=== PATIENT | female | born 1975 | race Caucasian/White ===

== ENCOUNTER 2016-06-12 18:00 | Emergency (ER) | payer BC ==
[2016-06-12 18:17] VITALS: BP 129/80
--- NOTE | 2016-06-12 18:29 | UC ---
Back Pain HPI - HPI Summary HPI Summary: WOKE UP YESTERDAY MORNING WITH SHARP LEFT SIDED MID BACK PAIN AND SPASM. GETTING WORSE. IBUPROFEN NOT HELPFUL. HAS HAD SEVERAL EPISODES OF SIMILAR PAIN BUT IN LOW BACK OVER THE PAST YEAR AND A HALF. USUALLY GETS BETTER WITH OTC MEDS AND REST. THIS FEELS WORSE. NO INJURY OR TRAUMA SHE CAN RECALL. 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 NO NUMBNESS, TINGLING OR SADDLE ANESTHESIA. - History of Current Complaint Chief Complaint: UCBackPain Stated Complaint: BACK PAIN Time Seen by Provider: 06/12/16 18:07 Hx Obtained From: Patient Hx Last Menstrual Period: 06/12/16 Onset/Duration: Sudden Onset, Lasting Days, Still Present Timing: Constant Severity Initially: Moderate Severity Currently: Moderate Pain Intensity: 6 Pain Scale Used: 0-10 Numeric Back Pain: Is Discrete @ - LEFT MID BACK Character: Sharp, Spasmodic Aggravating: Movement, Bending Alleviating: Nothing Associated Signs And Symptoms: Negative: Swelling, Redness, Bruising, Fever, Weakness, Numbness, Tingling, Abdominal Pain, Flank Pain, Bladder Incontinence, Bowel Incontinence - Allergies/Home Medications Allergies/Adverse Reactions: Allergies Allergy/AdvReac Type Severity Reaction Status Date / Time Sulfa Drugs Allergy Intermediate Rash Verified 06/12/16 18:08 PMH/Surg Hx/FS Hx/Imm Hx Previously Healthy: Yes Endocrine History Of: Denies: Diabetes, Thyroid Disease Cardiovascular History Of: Denies: Cardiac Disorders, Hypertension Respiratory History Of: Denies: COPD, Asthma GI/ History Of: Denies: Ulcer - Surgical History Surgical History: None - Family History Known Family History: Positive: Cardiac Disease - Social History Alcohol Use: Weekly Substance Use Type: None Smoking Status (MU): Never Smoked Tobacco Have You Smoked in the Last Year: No - Immunization History Most Recent Influenza Vaccination: 2016 Most Recent Tetanus Shot: 09/04/12 Vaccination Up to Date: Yes Review of Systems Constitutional: Negative Skin: Negative Respiratory: Negative Cardiovascular: Negative Gastrointestinal: Negative Musculoskeletal: Decreased ROM, Myalgia All Other Systems Reviewed And Are Negative: Yes Physical Exam Triage Information Reviewed: Yes Appearance: Well-Appearing, Well-Nourished, Pain Distress - MODERATE Vital Signs: Initial Vital Signs Temp 99 F 06/12/16 18:09 Pulse 71 06/12/16 18:09 Resp 18 06/12/16 18:09 BP 129/80 06/12/16 18:09 Pulse Ox 99 06/12/16 18:09 Vital Signs Reviewed: Yes Eyes: Positive: Conjunctiva Clear ENT: Positive: Hearing grossly normal Neck: Positive: Supple Respiratory: Positive: No respiratory distress, No accessory muscle use Cardiovascular: Positive: Pulses Normal Abdomen Description: Positive: Soft Musculoskeletal: Positive: No Edema, ROM Limited @ - BACK. PT VISIBLY UNCOMFORTABLE, Other: - NOT TTP OVER PARASPINOUS MUSCLES OR BONY PROMINENCES Neurological: Positive: Alert Psychological: Positive: Age Appropriate Behavior Skin: Negative: rashes Diagnostics - Radiology THORACOLUMBAR XRAYS Xray Interpretation: No Acute Changes Radiology Interpretation Completed By: Radiologist Back Pain Course/Dx - Differential Dx/Diagnosis Provider Diagnoses: ACUTE THORACIC BACK STRAIN Discharge - Discharge Plan Condition: Stable Disposition: HOME Prescriptions: Cyclobenzaprine TAB* [Flexeril TAB*] 10 mg PO BID PRN #30 tab PRN Reason: Pain Naproxen [Naproxen EC] 500 mg PO BID PRN #30 tab PRN Reason: Pain predniSONE TAB* [Deltasone TAB*] 40 mg PO DAILY #10 tab Patient Education Materials: Thoracic Back Strain (ED) Forms: *Work Release Referrals: Luis Maers MD [Primary Care Provider] - If Needed Additional Instructions: XRAYS TODAY UNREMARKABLE. BE SURE TO GO THROUGH SLOW RANGE OF MOTION AND STRETCHING EXERCISES DAILY YOU ARE ABLE TO PREVENT STIFFENING UP AND MAKING THE DISCOMFORT WORSE. FOLLOW-UP WITH YOUR PCP. IF YOUR SYMPTOMS DO NOT RESOLVE OR ARE RECURRENT YOU MAY BENEFIT FROM ADDITIONAL IMAGING. PHYSICAL THERAPY REFERRAL PROVIDED.
[2016-06-12] MEDS ORDERED: Naproxen TAB* 250 MG PO ONE ×2 (18:36→18:54)
[2016-06-12] MEDS ORDERED: Cyclobenzaprine TAB* 10 MG PO ONE (18:37)
[2016-06-12] MEDS ORDERED: predniSONE TAB* 20 MG PO ONE (18:56)
--- NOTE | 2016-06-12 18:58 | RAD ---
INDICATION: Neck pain. COMPARISON: Comparison is made with a prior chest x-ray study from April 05, 2003. TECHNIQUE: AP and lateral films of the spine were obtained centered at the dorsal lumbar junction. FINDINGS: The vertebra are in normal alignment. No fracture is seen. Disc spaces appear maintained. IMPRESSION: NEGATIVE EXAM.
== END 2016-06-12 19:14 | disposition home or self-care (01) ==
LOC: UCEAST 18:00
DX: S29.012A Strain of muscle and tendon of back wall of thorax, initial encounter (principal); X58.XXXA Exposure to other specified factors, initial encounter; Y93.9 Activity, unspecified; Y92.9 Unspecified place or not applicable; Z88.2 Allergy status to sulfonamides
CPT/HCPCS: 72080; 99213; A9270-GY; G0463; J7512

== ENCOUNTER 2016-06-22 00:59 | Emergency (ER) | payer BC ==
[2016-06-22] MEDS ORDERED: Ketorolac INJ* 15 MG/ML 1 ML VIAL IV PUSH ONE (01:40)
--- NOTE | 2016-06-22 01:49 | ED ---
Back Pain - HPI Summary HPI Summary: The patient is a 40 year old female presenting for evaluation of left mid back pain which began 1 week ago. Denies trauma or heavy lifting. Describes a constant pain progressively worse unrelieved with ibuprofen 800 mg last taken at 4 pm tonight. Increased pain with positional changes, lying supine or left lateral recumbent, and deep breaths. Admits to radiation to LUQ. Denies fever, chills diaphoresis, chest pain, cough, shortness of breath, hemoptysis, nausea, vomiting, dysuria, change in voiding, hematuria, numbness, unilateral weakness. Denies significant past medical or surgical history. FH CAD. SH: Occasional alcohol. No smoking or drug use. - History of Current Complaint Chief Complaint: EDFlankPain Stated Complaint: BACK PAIN Time Seen by Provider: 06/22/16 01:24 Hx Last Menstrual Period: 06/12/16 Pain Intensity: 5 - Allergies/Home Medications Allergies/Adverse Reactions: Allergies Allergy/AdvReac Type Severity Reaction Status Date / Time Sulfa Drugs Allergy Intermediate Rash Verified 06/21/16 09:15 PMH/Surg Hx/FS Hx/Imm Hx Endocrine/Hematology History: Denies: Hx Diabetes, Hx Thyroid Disease Cardiovascular History: Denies: Hx Hypertension, Hx Pacemaker/ICD Respiratory History: Denies: Hx Asthma, Hx Chronic Obstructive Pulmonary Disease (COPD) GI History: Denies: Hx Ulcer History: Denies: Hx Renal Disease Musculoskeletal History: Denies: Hx Scoliosis Sensory History: Denies: Hx Hearing Aid Neurological History: Denies: Hx Headaches Psychiatric History: Denies: Hx Panic Disorder Infectious Disease History: No Infectious Disease History: Denies: Hx Hepatitis, Hx Human Immunodeficiency Virus (HIV), Traveled Outside the [place] in Last 30 Days - Family History Known Family History: Positive: Cardiac Disease - Social History Alcohol Use: Weekly Substance Use Type: Reports: None Smoking Status (MU): Never Smoked Tobacco Have You Smoked in the Last Year: No Review of Systems Constitutional: Negative Cardiovascular: Negative Negative: Palpitations, Chest Pain Respiratory: Negative Negative: Shortness Of Breath, Cough Positive: Abdominal Pain. Negative: Vomiting, Diarrhea, Nausea Positive: Arthralgia, Myalgia. Negative: Decreased ROM Skin: Negative Negative: Rash, Bruising Neurological: Negative Negative: Weakness, Paresthesia, Numbness All Other Systems Reviewed And Are Negative: Yes Physical Exam Triage Information Reviewed: Yes Vital Signs On Initial Exam: Initial Vitals Temp Pulse Resp BP Pulse Ox 97.4 F 99 18 124/80 100 06/22/16 01:05 06/22/16 01:05 06/22/16 01:05 06/22/16 01:05 06/22/16 01:05 Vital Signs Reviewed: Yes Appearance: Positive: Well-Appearing, Well-Nourished, Pain Distress - grimacing with guarded positional changes; moderate pain Skin: Positive: Warm, Skin Color Reflects Adequate Perfusion, Dry Head/Face: Positive: Normal Head/Face Inspection Eyes: Positive: Normal - Anicteric ENT: Positive: Hearing grossly normal Neck: Positive: Supple, Nontender Respiratory/Lung Sounds: Positive: Clear to Auscultation, Breath Sounds Present. Negative: Decreased Breath Sounds, Rales, Rhonchi, Wheezes, Unable to speak in full sentences Cardiovascular: Positive: Normal, RRR, S1, S2. Negative: Murmur, Rub, Tachycardia, Leg Edema Left, Leg Edema Right, S3 Abdomen Description: Positive: No Organomegaly, Soft, Other: - mild tenderness LLQ. Negative: CVA Tenderness (R), CVA Tenderness (L), Distended, Guarding, Hepatomegaly, Peritoneal Signs, Splenomegaly Bowel Sounds: Positive: Present Musculoskeletal: Positive: Pain @ - no midline thoracic or lumbar tenderness; reproducible left mid thoracic paraspinous tenderness, Other - 5/5 muscle strength UE/LE bilaterally. Negative: Itzel Sign Left, Itzel Sign Right, Edema Left, Edema Right Neurological: Positive: Normal, Sensory/Motor Intact, Reflexes Intact, Facial Symmetry, Speech Normal Psychiatric: Positive: Normal AVPU Assessment: Alert Diagnostics - Vital Signs Vital Signs Temp Pulse Resp BP Pulse Ox 06/22/16 01:05 97.4 F 99 18 124/80 100 - Laboratory Result Diagrams: 06/22/16 01:50 06/22/16 01:50 Lab Statement: Any lab studies that have been ordered have been reviewed, and results considered in the medical decision making process. Back Pain Course/Dx - Course Assessment/Plan: Patient presents for mid thoracic pain pleuritic and positional. EKG NSR without acute ischemia. Low suspicion of ACS. CXR reviewed by myself without acute cardiopulmonary disease. Labs significant for WBC 12.9, Cr 1.42, with negative D-dimer. UA 2+ blood, and epithelial cell. CT Abd/Pelv renal protocol ordered. - Diagnoses Provider Diagnoses: Back pain, Hematuria - Provider Notifications Discussed Care of Patient With: signed out to Dr. Hawley [id number] Discharge - Discharge Plan Condition: Stable Disposition: OTHER Discharge Disposition Comment: signed out to Dr. Hawley [id number]
[2016-06-22 02:07] LABS: Hematocrit 43 % (35-47); Mean Corpuscular HGB Conc 33 g/dl (31-36); Mean Corpuscular Hemoglobin 28 pg (27-31); Mean Corpuscular Volume 85 fL (80-97); Mean Platelet Volume 9 um3 (7.4-10.4); Red Blood Count 5.08 10^6/ul (4.0-5.4); Red Cell Distribution Width 15 % (10.5-15); White Blood Count 12.9 10^3/ul (3.5-10.8)
[2016-06-22 02:10] LABS: Comments Flag Yes
[2016-06-22 02:11] LABS: Add Diff/Slide Review? Slide Review Added; Urine Bacteria Absent (Absent); Urine Bilirubin Negative (Negative); Urine Glucose Negative (Negative); Urine Nitrite Negative (Negative)
[2016-06-22 02:17] LABS: BUN/Creatinine Ratio 16.2 (8-20); Calcium 10.1 mg/dL (8.6-10.3); EGFR African American 53.2 (>60); EGFR Non-African American 41.4 (>60); Potassium 3.6 mmol/L (3.5-5.0)
[2016-06-22] MEDS ORDERED: NS 0.9% 1000 ML* 1,000 ML IV ONE ×2 (02:25→06:27)
--- NOTE | 2016-06-22 07:54 | RAD ---
Indication: Left posterior back pain. Comparison is made with previous exam dated January 09, 2010. 2 views of the chest including dual energy PA views demonstrate no mediastinal shift. Heart is of normal size and configuration. Lung eason are clear. IMPRESSION: No active cardiopulmonary disease is noted.
--- NOTE | 2016-06-22 08:00 | RAD ---
CLINICAL HISTORY: Left flank pain, hematuria COMPARISON: None TECHNIQUE: Multiple contiguous axial CT scans were obtained of the abdomen and pelvis, without intravenous contrast enhancement. Coronal and sagittal multiplanar reformations are submitted for review. Oral contrast was not administered. FINDINGS: The study is limited by the lack of intravenous contrast. This limits evaluation of the solid organs and vasculature. LUNG BASES: The lung bases are clear. LIVER: The liver is normal in shape, size, contour, and attenuation. BILE DUCTS: There is no intrahepatic or extrahepatic biliary dilatation. GALLBLADDER: The gallbladder is collapsed and is not well evaluated PANCREAS: The pancreas is normal, without mass or ductal dilatation. SPLEEN: Normal in size and appearance. UPPER GI TRACT: Evaluation of the gastrointestinal tract is limited by incomplete gastric distention. The upper GI tract is unremarkable. SMALL BOWEL AND MESENTERY: The small bowel is normal in contour, course, and caliber. There is no obstruction or dilatation. COLON: The colon is normal in contour, course, caliber. There is no pericolonic inflammatory change. There is a tubular, vermiform, hollow viscus that is blind ending, and originates from the cecum, consistent with a normal appendix. There is no periappendiceal inflammatory change. This is best seen on images 87 through 107 ADRENALS: Normal bilaterally. KIDNEYS: The kidneys are normal in shape, size, contour, and axis. There is no hydronephrosis or nephrolithiasis. BLADDER: The bladder is smooth in contour. PELVIC ORGANS: The uterus and adnexa are grossly normal for technique. There is a trace of free fluid within the cul-de-sac. This may be physiologic within a reproductive age female AORTA: The aorta is normal. IVC: Unremarkable LYMPH NODES: There is no lymphadenopathy by size criteria. ABDOMINAL WALL: There is no evidence for abdominal wall hernia. BONES AND SOFT TISSUES: Unremarkable OTHER: None IMPRESSION: NO HYDRONEPHROSIS OR NEPHROLITHIASIS
--- NOTE | 2016-06-22 08:38 | RAD ---
HISTORY: Renal insufficiency, flank pain COMPARISONS: CT dated June 22, 2016 TECHNIQUE: Multiple transverse and longitudinal ultrasound images were obtained of the kidneys and bladder using grayscale and color Doppler imaging. FINDINGS: RIGHT KIDNEY: The right kidney is normal in shape, size, contour, and echogenicity. There is no hydronephrosis or nephrolithiasis. The right kidney measures 10.8 x 5.7 x 5.4 cm. LEFT KIDNEY: The left kidney is normal in shape, size, contour, and echogenicity. There is no hydronephrosis or nephrolithiasis. The left kidney measures 10.5 x 4.2 x 4.6 cm. BLADDER: The bladder is smooth in contour. Bilateral ureteral jets are identified. The prevoid bladder volume is 143 milliliters.. The postvoid bladder volume is 7 milliliters. AORTA AND IVC: No images are submitted of the vasculature. RETROPERITONEUM: Unremarkable. OTHER: There are multiple hypoechoic lesions with internal vascularity throughout the spleen measuring up to 1.8 cm. IMPRESSION: 1. NO HYDRONEPHROSIS OR NEPHROLITHIASIS. 2. POST VOID RESIDUAL OF 7 ML. 3. HYPOECHOIC VASCULARIZED SPLENIC LESIONS. THE ABSENCE OF A HISTORY OF MALIGNANCY, THESE LIKELY REPRESENT SPLENIC HEMANGIOMAS, THOUGH THE IMAGING APPEARANCE IS INDETERMINATE. RECOMMEND CONSIDERATION OF CONTRAST-ENHANCED CT OR CONTRAST-ENHANCED MRI OF THE ABDOMEN.
--- NOTE | 2016-06-22 08:55 | ED ---
Maximo Ortiz Anna, scribed for Jill Peña MD on 06/22/16 at 0759 . Progress - Progress Note Progress Note: Pt signed out from Dr. Hawley at shift change, pending US. Patient is a 40 y/o female coming to [facility] presenting with left-sided flank pain. Pt with spasming laterally Course/Dx - Diagnoses Provider Diagnoses: Hematuria, Musculoskeletal pain Diagnostics - Vital Signs Vital Signs Temp Pulse Resp BP Pulse Ox 06/22/16 07:40 123/73 06/22/16 07:39 73 98 06/22/16 06:07 97.6 F 70 18 110/60 98 06/22/16 01:05 97.4 F 99 18 124/80 100 - Laboratory Lab Results: Lab Results 06/22/16 06/22/16 06/22/16 Range/Units 01:50 01:50 01:50 WBC 12.9 H (3.5-10.8) 10^3/ul RBC 5.08 (4.0-5.4) 10^6/ul Hgb 14.0 (12.0-16.0) g/dl Hct 43 (35-47) % MCV 85 (80-97) fL MCH 28 (27-31) pg MCHC 33 (31-36) g/dl RDW 15 (10.5-15) % Plt Count 285 (150-450) 10^3/ul MPV 9 (7.4-10.4) um3 Neut % (Auto) 76.5 (38-83) % Lymph % (Auto) 13.1 L (25-47) % Patrick % (Auto) 5.9 (1-9) % Eos % (Auto) 1.6 (0-6) % Baso % (Auto) 2.9 H (0-2) % Absolute Neuts (auto) 9.9 H (1.5-7.7) 10^3/ul Absolute Lymphs (auto) 1.7 (1.0-4.8) 10^3/ul Absolute Monos (auto) 0.8 (0-0.8) 10^3/ul Absolute Eos (auto) 0.2 (0-0.6) 10^3/ul Absolute Basos (auto) 0.4 H (0-0.2) 10^3/ul Absolute Nucleated RBC 0.01 10^3/ul Nucleated RBC % 0.1 D-Dimer, Quantitative < 200 (Less Than 230) ng/mL Sodium (133-145) mmol/L Potassium (3.5-5.0) mmol/L Chloride (101-111) mmol/L Carbon Dioxide (22-32) mmol/L Anion Gap (2-11) mmol/L BUN (6-24) mg/dL Creatinine (0.51-0.95) mg/dL Est GFR ( Amer) (>60) Est GFR (Non-Af Amer) (>60) BUN/Creatinine Ratio (8-20) Glucose (70-100) mg/dL Lactic Acid (0.5-2.0) mmol/L Calcium (8.6-10.3) mg/dL Urine Color Yellow Urine Appearance Clear Urine pH 6.0 (5-9) Ur Specific Mcintire 1.017 (1.010-1.030) Urine Protein Negative (Negative) Urine Ketones Negative (Negative) Urine Blood 1+ H (Negative) Urine Nitrate Negative (Negative) Urine Bilirubin Negative (Negative) Urine Urobilinogen Negative (Negative) Ur Leukocyte Esterase Negative (Negative) Urine WBC (Auto) Trace(0-5/hpf) (Absent) Urine RBC (Auto) 2+(6-10/hpf) H (Absent) Ur Squamous Epith Cells Present H (Absent) Urine Bacteria Absent (Absent) Urine Glucose Negative (Negative) 06/22/16 06/22/16 06/22/16 Range/Units 01:50 06:10 07:23 WBC (3.5-10.8) 10^3/ul RBC (4.0-5.4) 10^6/ul Hgb (12.0-16.0) g/dl Hct (35-47) % MCV (80-97) fL MCH (27-31) pg MCHC (31-36) g/dl RDW (10.5-15) % Plt Count (150-450) 10^3/ul MPV (7.4-10.4) um3 Neut % (Auto) (38-83) % Lymph % (Auto) (25-47) % Patrick % (Auto) (1-9) % Eos % (Auto) (0-6) % Baso % (Auto) (0-2) % Absolute Neuts (auto) (1.5-7.7) 10^3/ul Absolute Lymphs (auto) (1.0-4.8) 10^3/ul Absolute Monos (auto) (0-0.8) 10^3/ul Absolute Eos (auto) (0-0.6) 10^3/ul Absolute Basos (auto) (0-0.2) 10^3/ul Absolute Nucleated RBC 10^3/ul Nucleated RBC % D-Dimer, Quantitative (Less Than 230) ng/mL Sodium 137 (133-145) mmol/L Potassium 3.6 (3.5-5.0) mmol/L Chloride 104 (101-111) mmol/L Carbon Dioxide 27 (22-32) mmol/L Anion Gap 6 (2-11) mmol/L BUN 23 (6-24) mg/dL Creatinine 1.42 H (0.51-0.95) mg/dL Est GFR ( Amer) 53.2 (>60) Est GFR (Non-Af Amer) 41.4 (>60) BUN/Creatinine Ratio 16.2 (8-20) Glucose 95 (70-100) mg/dL Lactic Acid 0.5 0.5 (0.5-2.0) mmol/L Calcium 10.1 (8.6-10.3) mg/dL Urine Color Urine Appearance Urine pH (5-9) Ur Specific Mcintire (1.010-1.030) Urine Protein (Negative) Urine Ketones (Negative) Urine Blood (Negative) Urine Nitrate (Negative) Urine Bilirubin (Negative) Urine Urobilinogen (Negative) Ur Leukocyte Esterase (Negative) Urine WBC (Auto) (Absent) Urine RBC (Auto) (Absent) Ur Squamous Epith Cells (Absent) Urine Bacteria (Absent) Urine Glucose (Negative) Result Diagrams: 06/22/16 01:50 06/22/16 01:50 Lab Statement: Any lab studies that have been ordered have been reviewed, and results considered in the medical decision making process. - Ultrasound No standard instances Ultrasound Interpretation: Positive (See Comments) Ultrasound Interpretation Completed By: Radiologist - RENAL AND BLADDER US IMPRESSION: 1. NO HYDRONEPHROSIS OR NEPHROLITHIASIS. 2. POST VOID RESIDUAL OF 7 ML. 3. HYPOECHOIC VASCULARIZED SPLENIC LESIONS. THE ABSENCE OF A HISTORY OF MALIGNANCY, THESE LIKELY REPRESENT SPLENIC HEMANGIOMAS, THOUGH THE IMAGING APPEARANCE IS INDETERMINATE. RECOMMEND CONSIDERATION OF CONTRAST-ENHANCED CT OR CONTRAST-ENHANCED MRI OF THE ABDOMEN. The documentation as recorded by the Maximo collins Anna accurately reflects the service I personally performed and the decisions made by me, Jill Peña MD.
[2016-06-22 09:15] VITALS: BP 117/72
== END 2016-06-22 09:13 | disposition home or self-care (01) ==
LOC: ED 00:59
DX: R31.9 Hematuria, unspecified (principal); M79.1 Myalgia
CPT/HCPCS: 36415; 71020; 74176; 76770; 80048; 81003; 81015; 83605; 85025; 85379; 93005; 96374; 99282; J1885

== ENCOUNTER 2016-07-29 10:29 | Emergency (ER) | payer BC ==
[2016-07-29 11:41] VITALS: BP 127/70
[2016-07-29] MEDS ORDERED: DOXYcycline CAP(*) 100 MG PO ONE (12:24)
--- NOTE | 2016-07-29 12:31 | UC ---
Skin Complaint HPI - HPI Summary HPI Summary: Suddenly "felt tick burrowing in" on upper back this morning, picked at the area with a knife but still concerned about tick parts remaining. - History of Current Complaint Chief Complaint: UCSkin Time Seen by Provider: 07/29/16 12:14 Stated Complaint: TICK BITE Hx Obtained From: Patient Hx Last Menstrual Period: 2 WEEKS ?: No Onset/Duration: Sudden Onset Skin Exposure Onset/Duration: Hours Ago Timing: Constant Onset Severity: Mild Current Severity: Mild Character: Pain Aggravating: Nothing Alleviating: Nothing Associated Signs & Symptoms: Positive: Negative Related History: Insect Bite/Sting - Allergy/Home Medications Allergies/Adverse Reactions: Allergies Allergy/AdvReac Type Severity Reaction Status Date / Time Sulfa Drugs Allergy Intermediate Rash Verified 07/29/16 11:36 Home Medications: Home Medications NK [No Home Medications Reported] 07/29/16 [History Confirmed 07/29/16] Review of Systems Constitutional: Negative Skin: Other - tick bite, possible tick parts Eyes: Negative ENT: Negative Respiratory: Negative Cardiovascular: Negative Gastrointestinal: Negative Genitourinary: Negative Motor: Negative Neurovascular: Negative Musculoskeletal: Negative Neurological: Negative Psychological: Negative All Other Systems Reviewed And Are Negative: Yes PMH/Surg Hx/FS Hx/Imm Hx Endocrine History Of: Denies: Diabetes, Thyroid Disease Cardiovascular History Of: Denies: Cardiac Disorders, Hypertension, Pacemaker/ICD Respiratory History Of: Denies: COPD, Asthma GI/ History Of: Denies: Ulcer, Renal Disease - Surgical History Surgical History: None - Family History Known Family History: Positive: Cardiac Disease - Social History Lives: With Family Alcohol Use: Weekly Substance Use Type: None Smoking Status (MU): Never Smoked Tobacco Have You Smoked in the Last Year: No - Immunization History Most Recent Influenza Vaccination: 2015 Most Recent Tetanus Shot: 09/04/12 Vaccination Up to Date: Yes Physical Exam Triage Information Reviewed: Yes Appearance: Well-Appearing, No Pain Distress, Well-Nourished Vital Signs: Initial Vital Signs Temp 98.6 F 07/29/16 11:37 Pulse 66 07/29/16 11:37 Resp 16 07/29/16 11:37 BP 127/70 07/29/16 11:37 Pulse Ox 100 07/29/16 11:37 Vital Signs Reviewed: Yes Eye Exam: Normal Eyes: Positive: Conjunctiva Clear ENT Exam: Normal ENT: Positive: Normal ENT inspection, Hearing grossly normal, Pharynx normal, TMs normal Dental Exam: Normal Neck exam: Normal Neck: Positive: Supple, Nontender, No Lymphadenopathy Respiratory Exam: Normal Respiratory: Positive: Chest non-tender, Lungs clear, Normal breath sounds, No respiratory distress, No accessory muscle use Cardiovascular Exam: Normal Cardiovascular: Positive: RRR, No Murmur Musculoskeletal Exam: Normal Musculoskeletal: Positive: ROM Intact Neurological Exam: Normal Neurological: Positive: Alert Psychological Exam: Normal Skin Exam: Other - tick bite site completely abraded of skin approx 1cm diameter. Possible tiny punctate dark spot in center, no tick parts above the wound to remove. Course/Dx - Course Course Of Treatment: Provided education that possible mouth parts remaining in the bite wound do not increase chances of tick borne infection. - Diagnoses Provider Diagnoses: tick bite Discharge - Discharge Plan Condition: Stable Disposition: HOME Patient Education Materials: Tick Bite (ED) Referrals: Alethea Cheng MD [Primary Care Provider] - Additional Instructions: If you develop any of the following, please see your physician promptly: (1) Fever, chills, or generalized malaise associated with a headache. (2) A red round area at the site of the bite (or elsewhere) (3) Joint pain, joint swelling or generalized weakness. (4) Redness, swelling, or drainage at the site of the bite. Check yourself, your children and your pets for ticks whenever you've been in an area where ticks live. To remove a tick, grasp it firmly with some tweezers or a string in a slipknot as close to its head as possible and pull it steadily. Ticks do not have a typical "head" attached to their body. There are mouth parts sticking out which they use to feed. If there are mouth parts left behind in the wound there is NO increased risk of Lyme infection; however, the chances of a bacterial skin infection (cellulitis) are higher. If mouth parts remain after tick removal, the best thing to do is apply warm soaks to the area 3-4 times per day to encourage the skin to expel the foreign material. DOXYCYCLINE: Doxycycline (Vibramycin, Doryx) is an antibiotic of the tetracycline family. This type of drug is useful for infections of the respiratory tract and genital tract, and is sometimes used for intestinal infections. Unlike most tetracyclines, doxycycline can be taken with food. It is longer acting, and (usually) less prone to side effects than regular tetracycline. Tetracycline antibiotics can stain immature teeth and SHOULD NOT BE TAKEN BY CHILDREN, NURSING MOTHERS, OR WOMEN. Tetracyclines can make you more prone to sunburn. Abdominal cramping, nausea, and diarrhea are occasional side effects. Women may experience vaginal yeast infections. Call the doctor at once if you develop hives, itching, shortness of breath , or lightheadedness. WHEN A TICK IS NOT ENGORGED AND HAS BEEN ON LESS THAN 24 HOURS - THE RISK FOR LYME IS NEGLIGIBLE. YOU CAN REMOVE THE TICK AND OBSERVE THE AREA ON YOUR OWN. FOLLOW-UP CARE: You should contact your private physician for follow-up care if you develop spreading redness near the site of the bite or on any other areas of the body. If you are unable to get a timely appointment, or if you are worsening, call us or return for re-evaluation.
== END 2016-07-29 12:35 | disposition home or self-care (01) ==
LOC: UCEAST 10:29
DX: S20.469A Insect bite (nonvenomous) of unspecified back wall of thorax, initial encounter (principal); W57.XXXA Bitten or stung by nonvenomous insect and other nonvenomous arthropods, initial encounter; Y93.9 Activity, unspecified; Y92.9 Unspecified place or not applicable; Z88.2 Allergy status to sulfonamides
CPT/HCPCS: 99212; A9270-GY; G0463

== ENCOUNTER 2017-01-20 17:12 | Emergency (ER) | payer BC ==
[2017-01-20 17:40] VITALS: BP 115/73
[2017-01-20] MEDS ORDERED: predniSONE TAB* 20 MG PO ONE (18:22)
--- NOTE | 2017-01-20 18:29 | UC ---
Lyle Ortiz Nikita, scribed for Leonor Layne MD on 01/20/17 at 1818 . Respiratory Complaint HPI - HPI Summary HPI Summary: This patient is a 41 year old F presenting to [facility] with a chief complaint of a cough since 1 week ago. The CC is described as a dry cough at onset then a productive cough with green sputum since yesterday. The patient rates the pain 4 /10 in severity. Symptoms aggravated by nothing. Symptoms alleviated by nothing. Patient reports fatigue after coughing fits (sporadic), the coughing disrupts her sleep, burning/stinging in the throat, muscle aches, CP (secondary to coughing fits), and a loss of appetite. Patient denies ear pain and sinus congestion. Pt has only been taking cough drops. - History of Current Complaint Chief Complaint: UCRespiratory Stated Complaint: COUGH Time Seen by Provider: 01/20/17 18:07 Hx Obtained From: Patient Hx Last Menstrual Period: 01/07/17 Onset/Duration: Sudden Onset, Lasting Weeks, Still Present Severity Initially: Moderate Severity Currently: Moderate Pain Intensity: 4 Pain Scale Used: 0-10 Numeric Character: Cough: Nonproductive - at onset, Cough: Productive - green sputum started yesterday Aggravating Factors: Nothing Alleviating Factors: Nothing Associated Signs And Symptoms: Negative: Negative - Patient reports fatigue after coughing fits (sporadic), the coughing disrupts her sleep, burning/ stinging in the throat, muscle aches, CP (secondary to coughing fits), and a loss of appetite. Patient denies ear pain and sinus congestion. - Allergies/Home Medications Allergies/Adverse Reactions: Allergies Allergy/AdvReac Type Severity Reaction Status Date / Time Sulfa Drugs Allergy Intermediate Rash Verified 07/29/16 11:36 PMH/Surg Hx/FS Hx/Imm Hx Previously Healthy: Yes Endocrine History: Other Other Endocrine History: No DM Cardiovascular History: Other Other Cardiovascular History: No CAD, HTN Respiratory History: Other Other Respiratory History: No asthma, COPD - Surgical History Surgical History: None - Family History Known Family History: Positive: Cardiac Disease, Other Family History: asthma, stents - Social History Alcohol Use: Weekly Substance Use Type: None Smoking Status (MU): Former Smoker Have You Smoked in the Last Year: No - Immunization History Most Recent Influenza Vaccination: 2015 Most Recent Tetanus Shot: 09/04/12 Vaccination Up to Date: Yes Review of Systems Constitutional: Fatigue - after sporadic coughing fits Skin: Negative Eyes: Negative ENT: Other - burning/stinging in the throat; denies sinus congestion and ear pain Respiratory: Cough - non-productive at onset, productive with green sputum since yesterday Cardiovascular: Chest Pain - secondary to coughing fits Gastrointestinal: Other - loss of appetite Genitourinary: Negative Motor: Negative Neurovascular: Negative Musculoskeletal: Other: - muscle aches Neurological: Other - disruption of sleep due to coughing Psychological: Negative All Other Systems Reviewed And Are Negative: Yes Physical Exam Triage Information Reviewed: Yes Appearance: Well-Appearing, No Pain Distress Vital Signs: Initial Vital Signs Temp 98.1 F 01/20/17 17:33 Pulse 72 01/20/17 17:33 Resp 18 01/20/17 17:33 BP 115/73 01/20/17 17:33 Pulse Ox 100 01/20/17 17:33 Eyes: Positive: Conjunctiva Clear ENT: Positive: Pharynx normal, TMs normal Neck: Positive: Supple, Nontender, No Lymphadenopathy Respiratory: Positive: Lungs clear, Normal breath sounds Cardiovascular: Positive: RRR, No Murmur Musculoskeletal Exam: Normal Neurological Exam: Normal Psychological Exam: Normal Skin Exam: Normal UC Diagnostic Evaluation - Laboratory O2 Sat by Pulse Oximetry: 100 Respiratory Course/Dx - Course Course Of Treatment: can use prednisone for cough/secretions. back pain secondary to coughing. - Differential Dx/Diagnosis Differential Diagnosis/HQI/PQRI: Bronchitis, Laryngitis, Sinusitis Provider Diagnoses: viral respiratory illness with cough Discharge - Discharge Plan Condition: Stable Disposition: HOME Prescriptions: predniSONE TAB* [Deltasone TAB*] 20 mg PO BID #10 tab Patient Education Materials: Upper Respiratory Infection (ED) Referrals: Alethea Cheng MD [Primary Care Provider] - Additional Instructions: Begin use of prednisone to decrease secretions and help to suppress the cough. Use a long acting suppressant such as Delsym during the day. As discussed, there is no clinical evidence of a bacterial infection. You can use ibuprofen 600mg for relief of the back and chest wall pain caused by the coughing. The documentation as recorded by the Lyle collins Nikita accurately reflects the service I personally performed and the decisions made by me, Leonor Layne MD.
== END 2017-01-20 18:40 | disposition home or self-care (01) ==
LOC: UCEAST 17:12
DX: J06.9 Acute upper respiratory infection, unspecified (principal); Z88.2 Allergy status to sulfonamides
CPT/HCPCS: 99212; G0463; J7512

== ENCOUNTER → 2017-07-15 12:12 | Emergency (ER) | payer SELFPAY ==
[~2017-07-15 12:12] MED LIST: Ibuprofen TAB* 600 MG PO ONE
[2017-07-15 12:45] VITALS: BP 124/78
--- NOTE | 2017-07-15 13:11 | UC ---
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 Using crutches to ambulate, denies severe pain or swelling. Pain with wt-bearing. - History of Current Complaint Stated Complaint: ANKLE INJURY Time Seen by Provider: 07/15/17 12:39 Hx Obtained From: Patient Hx Last Menstrual Period: 07/04/17 Onset/Duration: Sudden Onset Severity Initially: Severe Severity Currently: Moderate Pain Intensity: 0 Aggravating Factor(s): Standing, Ambulation Alleviating Factor(s): Rest Able to Bear Weight: Yes Related History: Occupational Injury - Allergies/Home Medications Allergies/Adverse Reactions: Allergies Allergy/AdvReac Type Severity Reaction Status Date / Time Sulfa (Sulfonamide Allergy Rash Verified 07/15/17 12:39 Antibiotics) PMH/Surg Hx/FS Hx/Imm Hx - Additional Past Medical History Additional PMH: Chronic L hip pain Previously Healthy: Yes - Surgical History Surgical History: None - Family History Known Family History: Positive: Cardiac Disease, Other Family History: asthma, stents - Social History Occupation: Employed Full-time Alcohol Use: Weekly Substance Use Type: None Smoking Status (MU): Former Smoker Have You Smoked in the Last Year: No - Immunization History Most Recent Influenza Vaccination: 2015 Most Recent Tetanus Shot: 09/04/12 Vaccination Up to Date: Yes Review of Systems Constitutional: Negative Skin: Negative Eyes: Negative ENT: Negative Respiratory: Negative Cardiovascular: Negative Gastrointestinal: Negative Genitourinary: Negative Motor: Negative Neurovascular: Negative Musculoskeletal: Arthralgia Neurological: Negative Psychological: Negative Is Patient Immunocompromised?: No All Other Systems Reviewed And Are Negative: Yes Physical Exam Triage Information Reviewed: Yes Appearance: Well-Appearing, No Pain Distress, Well-Nourished Vital Signs: Initial Vital Signs Temp 98.8 F 07/15/17 12:40 Pulse 86 07/15/17 12:40 Resp 20 07/15/17 12:40 BP 124/78 07/15/17 12:40 Pulse Ox 100 07/15/17 12:40 Vital Signs Reviewed: Yes Eye Exam: Normal Eyes: Positive: Conjunctiva Clear ENT Exam: Normal ENT: Positive: Normal ENT inspection, Hearing grossly normal, Pharynx normal, TMs normal Neck exam: Normal Neck: Positive: Supple, Nontender, No Lymphadenopathy Respiratory Exam: Normal Respiratory: Positive: Chest non-tender, Lungs clear, Normal breath sounds, No respiratory distress, No accessory muscle use Cardiovascular Exam: Normal Cardiovascular: Positive: RRR, No Murmur Musculoskeletal Exam: Other - pain along L lateral ankle ligaments, no bony tenderness Musculoskeletal: Positive: ROM Intact Neurological Exam: Normal Neurological: Positive: Alert Psychological Exam: Normal Skin Exam: Normal Diagnostics - Radiology No standard instances Xray Interpretation: No Acute Changes Radiology Interpretation Completed By: Radiologist Lower Extremity Course/Dx - Differential Dx/Diagnosis Provider Diagnoses: L ankle sprain Discharge - Sign-Out/Discharge Documenting (check all that apply): Discharge - Discharge Plan Condition: Stable Disposition: HOME Referrals: Alethea Cheng MD [Primary Care Provider] - - Billing Disposition and Condition Condition: STABLE Disposition: HOME
--- NOTE | 2017-07-15 13:45 | RAD ---
HISTORY: Left ankle pain status post injury COMPARISONS: October 30, 2011 VIEWS: 3, Frontal, lateral, and oblique views of the left ankle FINDINGS: BONE DENSITY: Normal. BONES: There is no displaced fracture. JOINTS: There is no arthropathy. ALIGNMENT: There is no dislocation. SOFT TISSUES: Unremarkable. OTHER FINDINGS: None. IMPRESSION: NO ACUTE OSSEOUS INJURY. IF SYMPTOMS PERSIST, RECOMMEND REPEAT IMAGING.
== END | disposition home or self-care (01) ==
LOC: UCEAST 12:12
DX: S93.402A Sprain of unspecified ligament of left ankle, initial encounter (principal); W18.49XA Other slipping, tripping and stumbling without falling, initial encounter; Y93.G1 Activity, food preparation and clean up; Y92.215 Trade school as the place of occurrence of the external cause; Y99.0 Civilian activity done for income or pay; Z88.2 Allergy status to sulfonamides; Z87.891 Personal history of nicotine dependence
CPT/HCPCS: 99212; A9270-GY; G0463

== ENCOUNTER 2017-11-05 21:45 | Emergency (ER) | payer BC ==
[2017-11-05] MEDS ORDERED: Aspirin 81 mg CHEW TAB* 81 MG TAB.CHEW PO ONE (22:11)
[2017-11-05] MEDS ORDERED: LORazepam INJ* 2 MG/ML 1 ML VIAL IV PUSH ONE (22:11)
[2017-11-05 22:46] LABS: ABS Basophils 0.1 10^3/ul (0-0.2); ABS Eosinophils 0 10^3/ul (0-0.6); ABS Lymphocytes 1.4 10^3/ul (1.0-4.8); ABS Monocytes 0.6 10^3/ul (0-0.8); ABS Neutrophils 8.5 10^3/ul (1.5-7.7); ABS Nucleated RBC 0 10^3/ul; Eosinophil % 0.4 % (0-6); Hematocrit 43 % (35-47); Hemoglobin 14.5 g/dl (12.0-16.0); Lymphocyte % 13.5 % (25-47); Mean Corpuscular HGB Conc 34 g/dl (31-36); Mean Corpuscular Hemoglobin 29 pg (27-31); Mean Corpuscular Volume 84 fL (80-97); Mean Platelet Volume 8.8 um3 (7.4-10.4); Nucleated Red Blood Cells % 0.1; Platelet Count 265 10^3/ul (150-450); Red Blood Count 5.09 10^6/ul (4.00-5.40); Red Cell Distribution Width 15 % (10.5-15); White Blood Count 10.6 10^3/ul (3.5-10.8)
[2017-11-05 22:58] LABS: INR 0.87 (0.77-1.02)
[2017-11-05 23:06] LABS: EGFR Non-African American 60.7 (>60)
[2017-11-05] MEDS ORDERED: Potassium Chlor TAB* 20 MEQ TAB.ER PO ONE (23:16)
--- NOTE | 2017-11-05 23:24 | ED ---
HPI Chest Pain - HPI Summary HPI Summary: This is scribe Layton Villalobos documenting for attending Partha Xiong M.D. Patient is a 42 y/o F w/ c/o left sided constant chest pain which radiates to upper back and SOB onsetting six days ago. She also notes left hand numbness and tingling. She states she also began to experience right hand and facial tingling and numbness as well as dizziness while coming to hospital. On triage, pain is rated 5/10 and nothing is noted to aggravate/alleviate Sx. No Hx of anxiety and panic attack. Home medications and allergies are reviewed. I, Dr. Xiong, personally performed the services described in this documentation as scribed in my presence and it is both accurate and complete. - History of Current Complaint Chief Complaint: EDChestPainROMI Time Seen by Provider: 11/05/17 21:50 Hx Obtained From: Patient Hx Last Menstrual Period: 07/04/17 Onset/Duration: Started Days Ago - 6 days ago Timing: Constant Current Severity: Moderate - 5/10 Pain Intensity: 5 Pain Scale Used: 0-10 Numeric - 5/10 Chest Pain Location: Discrete at: - left side Chest Pain Radiates: Yes Chest Pain Radiates To:: Back - upper back Aggravating Factor(s): Nothing Alleviating Factor(s): Nothing Associated Signs and Symptoms: Positive: Numbness - left hand, right hand, face , Tingling - left hand, right hand, face, Dizziness, Shortness of Breath, Back Pain - Allergy/Home Medications Allergies/Adverse Reactions: Allergies Allergy/AdvReac Type Severity Reaction Status Date / Time Sulfa (Sulfonamide Allergy Rash Verified 07/15/17 12:39 Antibiotics) PMH/Surg Hx/FS Hx/Imm Hx Endocrine/Hematology History: Denies: Hx Diabetes, Hx Thyroid Disease Cardiovascular History: Denies: Hx Hypertension, Hx Pacemaker/ICD Respiratory History: Denies: Hx Asthma, Hx Chronic Obstructive Pulmonary Disease (COPD) GI History: Denies: Hx Ulcer History: Denies: Hx Renal Disease Musculoskeletal History: Denies: Hx Scoliosis Sensory History: Denies: Hx Hearing Aid Neurological History: Denies: Hx Headaches Psychiatric History: Denies: Hx Panic Disorder Infectious Disease History: No Infectious Disease History: Denies: Hx Clostridium Difficile, Hx Hepatitis, Hx Human Immunodeficiency Virus (HIV), Hx of Known/Suspected MRSA, Hx Shingles, Hx Tuberculosis, Hx Known/ Suspected VRE, Hx Known/Suspected VRSA, History Other Infectious Disease, Traveled Outside the [place] in Last 30 Days - Family History Known Family History: Positive: Cardiac Disease, Other - asthma, stents - Social History Alcohol Use: Daily Substance Use Type: Reports: None Hx Tobacco Use: No Smoking Status (MU): Former Smoker Have You Smoked in the Last Year: No Review of Systems Positive: Chest Pain - left side Positive: Shortness Of Breath Musculoskeletal: Other - back pain Neurological: Other - tingling in right hand, left hand, face; dizziness Positive: Numbness - right hand, left hand, face All Other Systems Reviewed And Are Negative: Yes Physical Exam - Summary Physical Exam Summary: VITAL SIGNS: Reviewed. GENERAL: Patient is a well-developed and nourished female who is lying comfortable in the stretcher. Patient is not in any acute respiratory distress. HEAD AND FACE: No signs of trauma. No ecchymosis, hematomas or skull depressions. No sinus tenderness. EYES: PERRLA, EOMI x 2, No injected conjunctiva, no nystagmus. EARS: Hearing grossly intact. Ear canals and tympanic membranes are within normal limits. MOUTH: Oropharynx within normal limits. NECK: Supple, trachea is midline, no adenopathy, no JVD, no carotid bruit, no c- spine tenderness, neck with full ROM. CHEST: Symmetric, no tenderness at palpation LUNGS: Clear to auscultation bilaterally. No wheezing or crackles. CVS: Regular rate and rhythm, S1 and S2 present, no murmurs or gallops appreciated. ABDOMEN: Soft, non-tender. No signs of distention. No rebound no guarding, and no masses palpated. Bowel sounds are normal. EXTREMITIES: FROM in all major joints, no edema, no cyanosis or clubbing. NEURO: Alert and oriented x 3. No acute neurological deficits. Speech is normal and follows commands. SKIN: Dry and warm Triage Information Reviewed: Yes Vital Signs On Initial Exam: Initial Vitals Temp Pulse Resp BP Pulse Ox 98.5 F 83 12 139/82 100 11/05/17 21:48 11/05/17 21:48 11/05/17 21:48 11/05/17 21:48 11/05/17 21:48 Vital Signs Reviewed: Yes Diagnostics - Vital Signs Vital Signs Temp Pulse Resp BP Pulse Ox 11/05/17 22:42 20 11/05/17 22:22 17 131/86 11/05/17 22:00 87 18 97 11/05/17 21:52 79 22 139/82 100 11/05/17 21:51 84 100 11/05/17 21:48 98.5 F 83 12 139/82 100 - Laboratory Lab Results: Lab Results 11/05/17 11/05/17 11/05/17 Range/Units 22:37 22:38 22:38 WBC 10.6 (3.5-10.8) 10^3/ul RBC 5.09 (4.00-5.40) 10^6/ul Hgb 14.5 (12.0-16.0) g/dl Hct 43 (35-47) % MCV 84 (80-97) fL MCH 29 (27-31) pg MCHC 34 (31-36) g/dl RDW 15 (10.5-15) % Plt Count 265 (150-450) 10^3/ul MPV 8.8 (7.4-10.4) um3 Neut % (Auto) 80.0 (38-83) % Lymph % (Auto) 13.5 L (25-47) % [place] % (Auto) 5.4 (0-7) % Eos % (Auto) 0.4 (0-6) % Baso % (Auto) 0.7 (0-2) % Absolute Neuts (auto) 8.5 H (1.5-7.7) 10^3/ul Absolute Lymphs (auto) 1.4 (1.0-4.8) 10^3/ul Absolute Monos (auto) 0.6 (0-0.8) 10^3/ul Absolute Eos (auto) 0 (0-0.6) 10^3/ul Absolute Basos (auto) 0.1 (0-0.2) 10^3/ul Absolute Nucleated RBC 0 10^3/ul Nucleated RBC % 0.1 INR (Anticoag Therapy) 0.87 (0.77-1.02) APTT 31.8 (26.0-36.3) seconds Sodium 139 (135-145) mmol/L Potassium 3.3 L (3.5-5.0) mmol/L Chloride 109 (101-111) mmol/L Carbon Dioxide 18 L (22-32) mmol/L Anion Gap 12 H (2-11) mmol/L BUN 13 (6-24) mg/dL Creatinine 1.01 H (0.51-0.95) mg/dL Est GFR ( Amer) 73.5 (>60) Est GFR (Non-Af Amer) 60.7 (>60) BUN/Creatinine Ratio 12.9 (8-20) Glucose 130 H (70-100) mg/dL Lactic Acid (0.5-2.0) mmol/L Calcium 10.1 (8.6-10.3) mg/dL Magnesium 1.8 L (1.9-2.7) mg/dL Total Bilirubin 0.60 (0.2-1.0) mg/dL AST 14 (13-39) U/L ALT 11 (7-52) U/L Alkaline Phosphatase 50 (34-104) U/L Troponin I 0.00 (<0.04) ng/mL Total Protein 7.4 (6.4-8.9) g/dL Albumin 4.9 (3.2-5.2) g/dL Globulin 2.5 (2-4) g/dL Albumin/Globulin Ratio 2.0 (1-3) Beta HCG, Quant < 0.60 mIU/mL 11/05/17 Range/Units 22:38 WBC (3.5-10.8) 10^3/ul RBC (4.00-5.40) 10^6/ul Hgb (12.0-16.0) g/dl Hct (35-47) % MCV (80-97) fL MCH (27-31) pg MCHC (31-36) g/dl RDW (10.5-15) % Plt Count (150-450) 10^3/ul MPV (7.4-10.4) um3 Neut % (Auto) (38-83) % Lymph % (Auto) (25-47) % [place] % (Auto) (0-7) % Eos % (Auto) (0-6) % Baso % (Auto) (0-2) % Absolute Neuts (auto) (1.5-7.7) 10^3/ul Absolute Lymphs (auto) (1.0-4.8) 10^3/ul Absolute Monos (auto) (0-0.8) 10^3/ul Absolute Eos (auto) (0-0.6) 10^3/ul Absolute Basos (auto) (0-0.2) 10^3/ul Absolute Nucleated RBC 10^3/ul Nucleated RBC % INR (Anticoag Therapy) (0.77-1.02) APTT (26.0-36.3) seconds Sodium (135-145) mmol/L Potassium (3.5-5.0) mmol/L Chloride (101-111) mmol/L Carbon Dioxide (22-32) mmol/L Anion Gap (2-11) mmol/L BUN (6-24) mg/dL Creatinine (0.51-0.95) mg/dL Est GFR ( Amer) (>60) Est GFR (Non-Af Amer) (>60) BUN/Creatinine Ratio (8-20) Glucose (70-100) mg/dL Lactic Acid 1.6 (0.5-2.0) mmol/L Calcium (8.6-10.3) mg/dL Magnesium (1.9-2.7) mg/dL Total Bilirubin (0.2-1.0) mg/dL AST (13-39) U/L ALT (7-52) U/L Alkaline Phosphatase (34-104) U/L Troponin I (<0.04) ng/mL Total Protein (6.4-8.9) g/dL Albumin (3.2-5.2) g/dL Globulin (2-4) g/dL Albumin/Globulin Ratio (1-3) Beta HCG, Quant mIU/mL Result Diagrams: 11/05/17 22:38 11/05/17 22:38 Lab Statement: Any lab studies that have been ordered have been reviewed, and results considered in the medical decision making process. - Radiology CXR Xray Interpretation: No Acute Changes Radiology Interpretation Completed By: ED Physician - No acute processes, pending official report. - EKG 2152 Cardiac Rate: NL - rate of 77 BPM EKG Rhythm: Sinus Rhythm EKG Interpretation: Normal axis. Normal interval. No ischemic changes Re-Evaluation - Re-Evaluation First Eval Re-Evaluation Time: 23:26 Comment: Discussed results of labs and tests with patient. Patient is recommened to go see guest services lead for cardiac stress test. Patient is agreeable with follow up plan. Chest Pain Course/Dx - Course Assessment/Plan: Patient is a 42 y/o F w/ c/o left sided constant chest pain which radiates to upper back and SOB onsetting six days ago. She also notes left hand numbness and tingling. She states she also began to experience right hand and facial tingling and numbness as well as dizziness while coming to hospital. On triage, pain is rated 5/10 and nothing is noted to aggravate/ alleviate Sx. No Hx of anxiety and panic attack. Patient is a 42 y/o F w/ c/o left sided constant chest pain which radiates to upper back and SOB onsetting six days ago. She also notes left hand numbness and tingling. She states she also began to experience right hand and facial tingling and numbness as well as dizziness while coming to hospital. On triage, pain is rated 5/10 and nothing is noted to aggravate/alleviate Sx. No Hx of anxiety and panic attack. Home medications and allergies are reviewed. Physical exam was normal. During ED course, patient was given potassium chloride 40 meq PO ED ONCE, lorazepam 1 mg IV PUSH ED ONCE, and aspirin 324 mg PO ED ONCE. Labs showed lymph % 13.5 L, absolute neuts 8.5 H, potassium 3.3 L, carbon dioxide 18 L, anion gap 12 H, creatinine 1.01 H, glucose 130 H, magnesium 1.8 L. CXR and EKG presented nothing abnormal. Patient was discharged to home and was advised to see guest services lead in 1-2 days for a cardiac stress tests. Patient is agreeable with plan and was diagnosed with atypical chest pain. - Diagnoses Provider Diagnoses: Atypical chest pain Discharge - Sign-Out/Discharge Documenting (check all that apply): Patient Departure - discharge - Discharge Plan Condition: Stable Disposition: HOME Patient Education Materials: Chest Pain (ED) Referrals: Abhijit Otero MD [Medical Doctor] - 2 Days Additional Instructions: Follow up with guest services lead in 1-2 days for a cardiac stress test. Return to ED for any changing or worsening symptoms.
[2017-11-05 23:51] VITALS: BP 116/80
--- NOTE | 2017-11-06 07:48 | RAD ---
INDICATION: Chest pain COMPARISON: Chest x-ray dated June 22, 2016 TECHNIQUE: Single AP portable view of the chest was obtained. FINDINGS: Image quality is compromised due to the relative inferiority of a portable chest x-ray. The heart and mediastinum exhibit normal size and contour. The lungs are grossly clear. There is no evidence of a large pleural effusion. Visualized bones are normal for the patient's age. IMPRESSION: No radiographic evidence for acute cardiopulmonary abnormality on this portable chest x-ray. R0
== END 2017-11-05 23:51 | disposition home or self-care (01) ==
LOC: ED 21:45
DX: R07.89 Other chest pain (principal); M54.6 Pain in thoracic spine; R06.02 Shortness of breath; R20.0 Anesthesia of skin; R42 Dizziness and giddiness; Z88.2 Allergy status to sulfonamides; Z82.49 Family history of ischemic heart disease and other diseases of the circulatory system; Z82.5 Family history of asthma and other chronic lower respiratory diseases; Z87.891 Personal history of nicotine dependence
CPT/HCPCS: 36415; 71045; 80053; 83605; 83735; 84484; 84702; 85025; 85610; 85730; 93005; 96374; 99284; A9270-GY; J2060

== ENCOUNTER 2019-02-04 18:45 | Emergency (ER) | payer BC ==
--- OUTSIDE RECORDS SUMMARY | 2019-02-04 18:52 | XMS REPORT | Continuity of Care Document ---
:1975 External Reference #:[id number] Author Name Alethea Cheng M.D. Address [address] [place] [address] Care Team Providers Name Role Phone Alethea Cheng - Family Medicine Care Team Information Show Jumping Instructor Helen Randhawa MD - Obstetrics & Care Team Information Show Jumping Instructor Gynecology Ac Bui ([place] - Direct) Care Team Information Show Jumping Instructor [phone] - Otolaryngology Chrystal Kimble - Dermatology Care Team Information Show Jumping Instructor [phone] Problems Active Problems Provider Date Restless legs Luis Mares M.D. Onset: 11/12/2011 Social History Type Date Description Comments Sex Unknown Tobacco Use Start: Unknown End: Former Cigarette Smoker smoked a pack/week for Unknown 3 years , stopped 2005. ETOH Use Social Alcohol 1 drink every other night. Tobacco Use Start: Unknown End: Patient is a former smoker Unknown Smoking Status Reviewed: 12/27/17 Patient is a former smoker Allergies, Adverse Reactions, Alerts Active Allergies Reaction Severity Comments Date Sulfa 08/05/2009 Medications Active Medications SIG Qnty Indications Ordering Provider Date Irbesartan 1 by mouth every 90tabs I10 Alethea Reed 01/13/2019 75mg Tablets day Gibson Cheng Alprazolam take 1 tablet by 15tabs F43.22 Alethea Reed 11/19/2017 0.25mg mouth as needed Gibson Cheng Tablets for anxiety Immunizations CPT Code Status Date Vaccine Lot # [id number] Given 01/13/2018 Influenza Vac, [place]riv[place], [place] [id number] Given 12/27/2017 Tdap Tetanus, W Pertussis [id number] Given 12/13/2016 Influenza Vac, [place]riv[place] [id number] Given 01/18/2016 Influenza Vac, [place] [id number] Given 01/12/2015 Influenza Vac, [place]riv[place] [id number] Given 12/10/2013 DO Not Use Split Influenza Virus Vaccine [id number] Given 01/18/2013 DO Not Use Split Influenza Virus Vaccine Vital Signs Date Vital Result Comment 01/13/2019 4:35pm BP Systolic 124 mmHg BP Diastolic 82 mmHg Heart Rate 80 /min Body Temperature 98.4 F Respiratory Rate 16 /min Height 64 inches 5'4" Weight 156.00 lb BMI (Body Mass Index) 26.8 kg/m2 12/27/2017 2:12pm BP Systolic 120 mmHg BP Diastolic 78 mmHg Heart Rate 78 /min Body Temperature 98.6 F Respiratory Rate 16 /min Height 64 inches 5'4" Weight 152.00 lb BMI (Body Mass Index) 26.1 kg/m2 Results Description No Information Available Procedures Description No Information Available Medical Devices Description No Information Available Encounters Description No Information Available Assessments Date Code Description Provider 01/13/2019 I10 Essential (primary) hypertension Alethea Cheng M.D. Plan of Treatment 01/13/2019 - Alethea Cheng M.D.I10 Essential (primary) hypertensionNew Medication:Irbesartan 75 mg - 1 by mouth every dayNew Labs:Basic Metabolic-ALL Lab Co's, Ordered: 01/13/19CCC-Comp+Lipid ([facility]), Ordered: 01/13/19CBC Electronic ([facility] New), Ordered: 01/13/19TSH ([facility]), Ordered: Comments:david plus- hand squeeze. resperate - monitored breathing. giving you a script for irbesartan.blood work 2 weeks after. refer to Cardiology nurse visit for 24 hour blood pressure monitor. you should have an ekg at that time.AllComments:Medication Management Patient Understands medications she's taking? Yes No Are there Barriers to Adherence? Yes No Has the patient been asked about herbal supplements and therapies, and OTC meds? Yes No Functional Status Description No Information Available Mental Status Description No Information Available Referrals Description No Information Available
--- OUTSIDE RECORDS SUMMARY | 2019-02-04 18:52 | XMS REPORT | Continuity of Care Document ---
:1975 External Reference #:[id number] Author Name Jorge Olivarez DO FACC (transmitted by agent of provider Manuela Sepulveda) Address [address] 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 long bikes ride Allergies, Adverse Reactions, Alerts Active Allergies Reaction Severity Comments Date Sulfa 02/04/2019 Medications Active Medications SIG Qnty Indications Ordering Provider Date Alprazolam 1 tablet po as Unknown 0.25mg Tablets needed for anxiety History Medications No Active Medications Unknown 02/04/2019 - 02/04/2019 Immunizations Description No Information Available Vital Signs Date Vital Result Comment 02/04/2019 3:12pm Height 64 inches 5'4" Weight 156.00 lb with shoes Heart Rate 76 /min BP Systolic 120 mmHg Ra BP Diastolic 74 mmHg Ra BP Systolic Sitting 116 mmHg LA BP Diastolic Sitting 74 mmHg LA BP Systolic Standing 116 mmHg LA BP Diastolic Standing 76 mmHg LA BMI (Body Mass Index) 26.8 kg/m2 Ejection Fraction NONE Results Description No Information Available Procedures Date Code Description Status 02/04/2019 11014 EKG Tracing & Interpretation Completed Medical Devices Description No Information Available Encounters Description No Information Available Assessments Date Code Description Provider 02/04/2019 Z82.49 Family history of ischemic heart disease Jorge Olivarez DO FACC and other diseases of the circulatory system 02/04/2019 I10 Essential (primary) hypertension Jorge Olivarez DO [facility] Plan of Treatment Future Appointment(s):02/13/2019 3:30 pm - Traveling ECHO 1 at [facility]02/04/2019 - Jorge Olivarez DO FACCZ82.49 Family history of ischemic heart disease and other diseases of the circulatory systemNew Xrays:CT Calcium Scan, Ordered: 02/04/19Comments:Have a calcium score (agatston score) at [facility] in [place]. This test can give us a much better idea what your heart attack risk is.. It is not covered by insurance and should be less than $200 out of pocket (please confirm that with them).If you do not hear from us with results by 1 week after the test, please call use.Follow up:f/u PRNI10 Essential (primary) hypertensionNew Orders:Echocardiogram, Ordered: 02/04/19 Functional Status Description No Information Available Mental Status Description No Information Available Referrals Description No Information Available
[2019-02-04] MEDS ORDERED: Famotidine IV* 10 MG/ML 2 ML (20 mg) IV SLOW PU ONE (19:00)
[2019-02-04] MEDS ORDERED: diPHENhydraMINE IV* 50 MG/ML 1 ml VIAL (BENADRYL) IV ONE (19:00)
[2019-02-04] MEDS ORDERED: methylPREDNISolone 125 MG* 2 ML VIAL IV ONE (19:00)
[2019-02-04 19:05] VITALS: BP 139/68
[2019-02-04] MEDS ORDERED: NS 0.9% 1000 ML** 1,000 ML IV ONE (19:14)
--- NOTE | 2019-02-04 19:22 | UC ---
Allergic Reaction HPI - HPI Summary HPI Summary: 43-year-old woman comes in with a chief complaint of a headache and rash. Sudden onset around 6 PM tonight. Headache is bitemporal. The headache is severe. The noticed rash and heat flushing on her face and shoulders. She had eaten tuna sandwich at approximately 4:30 PM today. No difficulty swallowing or breathing. No history of allergic reactions. - History of Current Complaint Chief Complaint: UCAllergicReaction Stated Complaint: POSS ALLERGIC REACTION Time Seen by Provider: 02/04/19 18:59 Hx Last Menstrual Period: 1 week ago Pain Intensity: 7 - Allergies/Home Medications Allergies/Adverse Reactions: Allergies Allergy/AdvReac Type Severity Reaction Status Date / Time Sulfa (Sulfonamide Allergy Rash Verified 07/15/17 12:39 Antibiotics) PMH/Surg Hx/FS Hx/Imm Hx Previously Healthy: Yes - Surgical History Surgical History: None - Family History Known Family History: Positive: Cardiac Disease, Other - asthma, stents Family History: asthma, stents - Social History Alcohol Use: Weekly Substance Use Type: None Smoking Status (MU): Former Smoker Have You Smoked in the Last Year: No - Immunization History Most Recent Influenza Vaccination: 2015 Most Recent Tetanus Shot: 09/04/12 Vaccination Up to Date: Yes Review of Systems All Other Systems Reviewed And Are Negative: Yes Constitutional: Positive: Other - SEE HPI Skin: Positive: Other - SEE HPI Eyes: Positive: Eye Redness ENT: Positive: Negative Respiratory: Positive: Negative Cardiovascular: Positive: Negative Gastrointestinal: Positive: Negative Motor: Positive: Negative Neurovascular: Positive: Negative Musculoskeletal: Positive: Negative Neurological: Positive: Headache Psychological: Positive: Negative Is Patient Immunocompromised?: No Physical Exam Triage Information Reviewed: Yes Appearance: No Pain Distress, Well-Nourished, Other: - Mildly anxious. She does have blanching erythema on the face and shoulders and upper arms. No difficulty with breathing or swallowing. Vital Signs: Initial Vital Signs Temp 99.5 F 02/04/19 19:00 Pulse 104 02/04/19 19:00 Resp 20 02/04/19 19:00 BP 139/68 02/04/19 19:00 Pulse Ox 100 02/04/19 19:00 Vital Signs Reviewed: Yes Eyes: Positive: Conjunctiva Inflamed - Bilateral scleral injection, Other: - PERRLA EOMI. Negative: Discharge ENT: Positive: Pharynx normal - Pharynx is open., Uvula midline, Other - Normal speech. Negative: Muffled voice, Hoarse voice Neck: Positive: Supple Respiratory: Positive: Lungs clear, Normal breath sounds, No respiratory distress Cardiovascular: Positive: RRR Musculoskeletal: Positive: Strength Intact, ROM Intact Neurological: Positive: Alert, Muscle Tone Normal Psychological: Positive: Age Appropriate Behavior Skin: Positive: Other - Patient has an erythematous raised blanching rash on her head neck shoulders and upper arms. Allergic Reaction Course/Dx - Differential Dx/Diagnosis Provider Diagnosis: Scombroid fish poisoning Discharge ED - Sign-Out/Discharge Documenting (check all that apply): Patient Departure All imaging exams completed and their final reports reviewed: No Studies - Discharge Plan Condition: Stable Disposition: HOME Patient Education Materials: Food Poisoning (ED), General Allergic Reaction (ED ) Referrals: Alethea Cheng MD [Primary Care Provider] - Additional Instructions: FOLLOW UP WITH YOUR DOCTOR IF NOT COMPLETELY IMPROVED. TAKE BENADRYL 50MG EVERY 6 HOURS NEEDED. TAKE PEPCID 20MG TWICE A DAY NEEDED. GO TO THE EMERGENCY DEPARTMENT IF WORSE; DIFFICULTY SWALLOWING OR BREATHING, YOU FEEL ILL, YOU FEEL LIKE PASSING OUT, PAIN, WEAKNESS, NUMBNESS, DIFFICULTY WITH VISION OR SPEECH, FEVER, DEHYDRATION OR ANY QUESTIONS OR CONCERNS. - Billing Disposition and Condition Condition: STABLE Disposition: Home
[2019-02-04] MEDS ORDERED: diPHENhydraMINE PO* 50 MG PO ONE (20:16)
[2019-02-04] MEDS ORDERED: Famotidine TAB* 20 MG PO ONE (20:16)
== END 2019-02-04 20:40 | disposition home or self-care (01) ==
LOC: UCEAST 18:45
DX: T61.11XA Scombroid fish poisoning, accidental (unintentional), initial encounter (principal); L25.8 Unspecified contact dermatitis due to other agents; Z88.2 Allergy status to sulfonamides; Z87.891 Personal history of nicotine dependence; Y92.9 Unspecified place or not applicable; R51 Headache
CPT/HCPCS: 96360; 96374; 96375; 99212; A9270-GY; G0463; J1200; J2930